=== PATIENT | female | born 1965 | race Caucasian/White ===

== ENCOUNTER 2017-11-07 07:56 | Day surgery (SDC) | payer OTHER ==
[2017-11-07] MEDS ORDERED: ALBUTEROL HFA 8 GM INHALER (09:24)
[2017-11-07] MEDS ORDERED: MIDAZOLAM 1 MG/ML 2 ML INJ (09:31)
[2017-11-07] MEDS ORDERED: PROPOFOL 40 ML (09:31)
[2017-11-07] MEDS ORDERED: KETAMINE (50 MG/ML) 10 ML VIAL (09:31)
== END 2017-11-07 10:32 | disposition home or self-care (01) ==
LOC: GIL 07:56
DX: Z12.11 Encounter for screening for malignant neoplasm of colon (principal); D12.0 Benign neoplasm of cecum; K64.8 Other hemorrhoids; K57.90 Diverticulosis of intestine, part unspecified, without perforation or abscess without bleeding; E11.9 Type 2 diabetes mellitus without complications; J45.909 Unspecified asthma, uncomplicated; E66.01 Morbid (severe) obesity due to excess calories; Z68.43 Body mass index [BMI] 50.0-59.9, adult
CPT/HCPCS: 45380; 82962; 84703; 88305

== ENCOUNTER 2018-03-12 21:25 | Emergency (ER) | payer OTHER ==
[2018-03-12] MEDS: IBUPROFEN 800 MG TAB PO (22:42)
[2018-03-12] MEDS: HYDROCODONE/APAP (5/325) TAB PO (22:43)
== END 2018-03-12 23:03 | disposition home or self-care (01) ==
LOC: FTE 21:25
DX: L02.416 Cutaneous abscess of left lower limb (principal); J45.909 Unspecified asthma, uncomplicated; E11.9 Type 2 diabetes mellitus without complications; Z79.84 Long term (current) use of oral hypoglycemic drugs
CPT/HCPCS: 99283; Z7502

== ENCOUNTER → 2018-08-03 | Outpatient (CLI) | payer OTHER | END | disposition home or self-care (01) | LOC: EEG 08:25 | DX: G40.409 Other generalized epilepsy and epileptic syndromes, not intractable, without status epilepticus (principal) | CPT/HCPCS: 95819 ==